=== PATIENT | female | born 1990 | race Hispanic/Latino ===

== ENCOUNTER 2021-06-05 11:23 | Emergency (ER) | payer OTHER, SELFPAY ==
[2021-06-05 13:27] LABS: SARS-COV-2 RT PCR POSITIVE (NEGATIVE)
[2021-06-05 13:38] LABS: Urine Blood 2+ (Negative); Urine Glucose Negative (Negative); Urine Protein 1+ (Negative); Urine Specific Gravity >=1.030 (1.005-1.030); Urine pH 5.5 (5.0-7.0)
[2021-06-05] MEDS ORDERED: ACETAMINOPHEN 500 MG TAB ONE (14:16)
[2021-06-05] MEDS ORDERED: NA CHLORIDE 0.9% 1,000 ML ONE (14:16)
--- NOTE | 2021-06-05 14:36 | ER ---
Nurse's Notes [facility] Name: Monica Serna Age: 31 yrs Sex: Female : 1990 Arrival Date: 06/05/2021 Time: 11:25 Bed 11 Private MD: Diagnosis: Coronavirus infection, unspecified Presentation: 06/05 11:37 Chief complaint: Patient states: fever, chills, and body aches x 4 days ago. Pt denies aa5 cough/congestion, denies sore throat. Reports no appetite. Coronavirus screen: chills, fever. Ebola Screen: Patient negative for fever greater than or equal to 101.5 degrees Fahrenheit, and additional compatible Ebola Virus Disease symptoms. Initial Sepsis Screen: Does the patient meet any 2 criteria? HR > 90 bpm. Does the patient have a suspected source of infection? No. Patient's initial sepsis screen is negative. Risk Assessment: Do you want to hurt yourself or someone else? Patient reports no desire to harm self or others. Onset of symptoms was May 2021. 11:37 Method Of Arrival: Ambulatory aa5 11:37 Acuity: SEGUNDO 3 aa5 Triage Assessment: 11:37 General: Appears comfortable, Behavior is calm, cooperative, Reports chills for >3 aa5 days, fever for > 3 days. Pain: Complains of pain in whole body Quality of pain is described as aching. EENT: No signs and/or symptoms were reported regarding the EENT system. Neuro: Level of Consciousness is awake, alert, obeys commands, Oriented to person, place, time, situation. Cardiovascular: Heart tones S1 S2 present Rhythm is regular. Respiratory: Airway is patent Respiratory effort is even, unlabored, Respiratory pattern is regular, symmetrical, Breath sounds are clear bilaterally. GI: Reports no appetite. : No signs and/or symptoms were reported regarding the genitourinary system. Derm: Skin is pink, warm \T\ dry. Musculoskeletal: Range of motion: intact in all extremities. 14:53 General: Appears in no apparent distress. Behavior is calm, cooperative. 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 Flu vaccine is not up to date. - Social history:: Smoking status: Patient denies any tobacco usage or history of. Screenin:51 Abuse screen: Denies threats or abuse. Denies injuries from another. Nutritional iw screening: No deficits noted. Tuberculosis screening: No symptoms or risk factors identified. Fall Risk IV access (20 points). Assessment: 13:45 Neuro: Level of Consciousness is awake, alert, obeys commands, Oriented to person, aa5 place, time, situation. Respiratory: Airway is patent Respiratory effort is even, unlabored, Respiratory pattern is regular, symmetrical. Derm: Skin is pink, warm \T\ dry. 14:51 Reassessment: Patient appears in no apparent distress at this time. Patient and/or iw family updated on plan of care and expected duration. Pain level reassessed. Patient is alert, oriented x 3, equal unlabored respirations, skin warm/dry/pink. Patient states feeling better. Patient states symptoms have improved. Vital Signs: 11:37 BP 121 / 89; aa5 11:37 BP 121 / 89; Pulse 108; Resp 18; Temp 98.6(TE); Pulse Ox 97% on R/A; Weight 55.34 kg aa5 (R); Height 5 ft. 3 in. (160.02 cm) (R); 13:44 BP 119 / 79; Pulse 125; Resp 20 S; Temp 100.3(TE); Pulse Ox 98% on R/A; iw 14:51 BP 124 / 78; Pulse 100; Resp 18; Pulse Ox 98% on R/A; iw 11:37 Body Mass Index 21.61 (55.34 kg, 160.02 cm) aa5 ED Course: 11:25 Patient arrived in ED. am2 11:37 Arm band placed on. aa5 11:38 Triage completed. aa5 13:38 Alana Silver FNP-C [facility]. kb 13:38 Tramaine Buitrago MD is Attending Physician. kb 13:54 Inserted saline lock: 14 gauge 20 gauge in right antecubital area, using aseptic aa5 technique. 13:57 Lily Carrillo, CHATO is Primary Nurse. aa5 14:52 Patient has correct armband on for positive identification. iw 14:52 No provider procedures requiring assistance completed. IV discontinued, intact, iw bleeding controlled, No redness/swelling at site. Pressure dressing applied. Administered Medications: 13:56 Drug: Tylenol 1000 mg Route: PO; aa5 14:53 Follow up: Response: No adverse reaction aa5 13:56 Drug: NS 0.9% 1000 ml Route: IV; Rate: 1000 ml; Site: right antecubital; aa5 14:53 Follow up: IV Status: Completed infusion; IV Intake: 1000ml aa5 Intake: 14:53 IV: 1000ml; Total: 1000ml. aa5 Outcome: 14:36 Discharge ordered by . kb 14:53 Discharged to home ambulatory, with family. iw 14:53 Condition: good 14:53 Discharge instructions given to patient, family, Instructed on discharge instructions, follow up and referral plans. 14:54 Patient left the ED. iw Signatures: Alana Silver, TEMO-C INSOLE TAPER-CkPushpa Sampson RN RN iw Lily Carrillo RN RN aa5 Simi Gallego am2 Corrections: (The following items were deleted from the chart) 11:39 11:38 BP 121 / 89; Pulse 108bpm; Resp 18bpm; Pulse Ox 97% RA; Temp 98.6F Temporal; aa5 55.34 kg Reported; Height 5 ft. 3 in. Reported; BMI: 21.6; aa5 19:30 11:30 General: Appears comfortable, Behavior is calm, cooperative, Reports chills for aa5 >3 days, fever for > 3 days, aa5 19:30 11:30 Pain: Complains of pain in whole body Quality of pain is described as aching, aa5 aa5 19:30 11:30 EENT: No signs and/or symptoms were reported regarding the EENT system. aa5 aa5 19:30 11:30 Neuro: Level of Consciousness is awake, alert, obeys commands, Oriented to aa5 person, place, time, situation, aa5 19:30 11:30 Cardiovascular: Heart tones S1 S2 present Rhythm is regular aa5 aa5 19:30 11:30 Respiratory: Airway is patent Respiratory effort is even, unlabored, Respiratory aa5 pattern is regular, symmetrical, Breath sounds are clear bilaterally. aa5 19:30 11:30 GI: Reports no appetite aa5 aa5 11:30 : No signs and/or symptoms were reported regarding the genitourinary system. aa5aa5 11:30 Derm: Skin is pink, warm \T\ dry. aa5 aa5 11:30 Musculoskeletal: Range of motion: intact in all extremities, aa5 aa5
--- NOTE | 2021-06-05 14:36 | EDPHYS ---
Physician Documentation [facility] Name: Monica Serna Age: 31 yrs Sex: Female : 1990 Arrival Date: 06/05/2021 Time: 11:25 Bed 11 Private MD: ED Physician Tramaine Buitrago HPI: 06/05 14:38 This 31 yrs old Female presents to ER via Ambulatory with complaints of Fever, kb chills, bodyaches. 14:39 The patient or guardian reports flu symptoms, low-grade fever, myalgias. Onset: The kb symptoms/episode began/occurred 4 day(s) ago. Severity of symptoms: At their worst the symptoms were mild, moderate, in the emergency department the symptoms are unchanged. Modifying factors: The symptoms are alleviated by nothing, the symptoms are aggravated by nothing. Associated signs and symptoms: Pertinent positives: fever, Pertinent negatives: chest pain, diarrhea, ear ache, nausea, rhinorrhea, sore throat, vomiting. The patient has not experienced similar symptoms in the past. The patient has not recently seen a physician. Patient reports fever chills and body aches for 4 days. Denies cough congestion shortness of breath. 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 Flu vaccine is not up to date. - Social history:: Smoking status: Patient denies any tobacco usage or history of. ROS: 14:38 Respiratory: Negative for shortness of breath, cough, wheezing, and pleuritic chest kb pain. 14:38 Constitutional: Positive for body aches, chills, fever, malaise. 14:38 All other systems are negative. Exam: 14:38 Constitutional: This is a well developed, well nourished patient who is awake, alert, kb and in no acute distress. Head/Face: Normocephalic, atraumatic. ENT: Moist Mucous membranes Cardiovascular: Regular rate and rhythm with a normal S1 and S2. No gallops, murmurs, or rubs. No pulse deficits. Respiratory: Respirations even and unlabored. No increased work of breathing, no retractions or nasal flaring. Abdomen/GI: Soft, non-tender. No distention Skin: Warm, dry with normal turgor. Normal color. MS/ Extremity: Pulses equal, no cyanosis. Neurovascular intact. Full, normal range of motion. Neuro: Awake and alert, GCS 15, oriented to person, place, time, and situation. Moves all extremities. Normal gait. Psych: Awake, alert, with orientation to person, place and time. Behavior, mood, and affect are within normal limits. Vital Signs: 11:37 BP 121 / 89; aa5 11:37 BP 121 / 89; Pulse 108; Resp 18; Temp 98.6(TE); Pulse Ox 97% on R/A; Weight 55.34 kg aa5 (R); Height 5 ft. 3 in. (160.02 cm) (R); 13:44 BP 119 / 79; Pulse 125; Resp 20 S; Temp 100.3(TE); Pulse Ox 98% on R/A; iw 14:51 BP 124 / 78; Pulse 100; Resp 18; Pulse Ox 98% on R/A; iw 11:37 Body Mass Index 21.61 (55.34 kg, 160.02 cm) aa5 MDM: 13:42 Patient medically screened. kb 14:38 Data reviewed: vital signs, nurses notes. Data interpreted: Pulse oximetry: on room air kb is 98 %. Interpretation: normal. Counseling: I had a detailed discussion with the patient and/or guardian regarding: the historical points, exam findings, and any diagnostic results supporting the discharge/admit diagnosis, lab results, the need for outpatient follow up, a family practitioner, to return to the emergency department if symptoms worsen or persist or if there are any questions or concerns that arise at home. 06/05 13:28 Order name: COVID-19/FLU A+B; Complete Time: 13:38 EDAK 06/05 13:38 Order name: Urine Dipstick-Ancillary; Complete Time: 13:38 EDAK 06/05 13:46 Order name: Urine --Ancillary (enter results); Complete Time: 14:39 em1 06/05 11:41 Order name: Urine Dipstick-Ancillary (obtain specimen); Complete Time: 13:45 aa5 06/05 11:41 Order name: Urine Test (obtain specimen); Complete Time: 13:45 aa5 Administered Medications: 13:56 Drug: Tylenol 1000 mg Route: PO; aa5 14:53 Follow up: Response: No adverse reaction aa5 13:56 Drug: NS 0.9% 1000 ml Route: IV; Rate: 1000 ml; Site: right antecubital; aa5 14:53 Follow up: IV Status: Completed infusion; IV Intake: 1000ml aa5 Disposition: 06/06 06:26 Co-signature as Attending Physician, Tramaine Buitrago MD I agree with the assessment and [facility] plan of care. Disposition Summary: 06/05/21 14:36 Discharge Ordered Location: Home kb Condition: Stable kb Diagnosis - Coronavirus infection, unspecified kb Followup: kb - With: Emergency Department - When: As needed - Reason: Worsening of condition Followup: kb - With: Private Physician - When: 2 - 3 days - Reason: Recheck today's complaints, Continuance of care, Re-evaluation by your physician Discharge Instructions: - Discharge Summary Sheet kb - Viral Respiratory Infection, [id number] kb - COVID-19 kb Forms: - Medication Reconciliation Form kb - Thank You Letter kb - Antibiotic Education kb - Prescription Opioid Use kb Signatures: Dispatcher [employer] EDAlana Causey, KAI WHAKARURUHAU-C KAI WHAKARURUHAU-Tramaine Lawler MD MD cha Calderon, Audri, RN RN aa5 Corrections: (The following items were deleted from the chart) 06/05 12:27 11:41 CORONAVIRUS+MR.LAB.BRZ ordered. EDMS EDMS 12: 11:41 Influenza Screen (A \T\ B)+BA.LAB.BRZ ordered. EDMS EDMS
[2021-06-05 14:39] LABS: Urine Specific Gravity/Preg >1.030 (1.005-1.030)
[2021-06-05 22:34] VITALS: TEMP 100.3; O2SAT 98
[2021-06-05 22:35] VITALS: BP 124/78
== END 2021-06-05 14:54 | disposition home or self-care (01) ==
LOC: ER 11:23
DX: U07.1 COVID-19 (principal)
CPT/HCPCS: 0240U; 81003; 81025; 96360; 99283; J7030